=== PATIENT | male | born 1960 | race Caucasian/White ===

== ENCOUNTER 2023-09-02 17:20 | Observation (INO) | payer MEDICAID ==
[~2023-09-02] VITALS: Ht 170.2 cm; Wt 75.9 kg
[2023-09-02] MEDS ORDERED: NS 1,000 ML IV ONE (22:05)
[2023-09-02] MEDS ORDERED: IPRATROPIUM 0.5MG/ALBUTEROL 2.5MG INH SOL UD 3ML (DUONEB) NEB ONE (22:05)
[2023-09-02] MEDS ORDERED: methylPREDNISolone 125MG 2ML VIAL IV ONE (22:05)
[2023-09-02 22:31] LABS: BASO % 0.4 % (0.0-1.0); EOS # 0.2 10^3/uL (0.0-0.5); EOS % 1.5 % (0.0-3.0); HEMATOCRIT 38.3 % (42.0-52.0); HEMOGLOBIN 12.2 g/dl (13.5-17.5); LYMPH # 1.9 10^3/uL (1.5-5.0); LYMPH % 16.9 % (24.0-44.0); MEAN CORPUSCULAR HEMOGLOBIN 28.2 pg (27.0-33.0); MEAN CORPUSCULAR HGB CONC 31.9 g/dl (32.0-36.5); MEAN CORPUSCULAR VOLUME 88.7 fl (80.0-96.0); MONO # 1.1 10^3/uL (0.0-0.8); MONO % 9.9 % (2.0-8.0); NEUTROPHILS % 70.9 % (36.0-66.0); PLATELET COUNT, AUTOMATED 335 10^3/uL (150-450); RED BLOOD COUNT 4.32 10^6/uL (4.30-6.10); WHITE BLOOD COUNT 11.3 10^3/uL (4.0-10.0)
[2023-09-02 22:55] LABS: ALBUMIN 3.4 G/DL (3.2-5.2); ALKALINE PHOSPHATASE 107 U/L (46-116); ALT/SGPT 25 U/L (7.0-40); AST/SGOT 15 U/L (<34); BILIRUBIN,DIRECT 0.1 MG/DL (<0.4); BILIRUBIN,TOTAL 0.4 MG/DL (0.3-1.2); BLOOD UREA NITROGEN 27 MG/DL (9-23); CALCIUM LEVEL 9.1 MG/DL (8.3-10.6); CARBON DIOXIDE LEVEL > 40.0 MMOL/L (20-31); CHLORIDE LEVEL 95 MMOL/L (98-107); CREATININE FOR GFR 1.07 MG/DL (0.70-1.30); GLOMERULAR FILTRATION RATE > 60.0 (>49); GLUCOSE, FASTING 89 MG/DL (74-106); POTASSIUM SERUM 3.8 MMOL/L (3.5-5.1); SODIUM LEVEL 140 MMOL/L (136-145); TOTAL PROTEIN 7.6 G/DL (5.7-8.2)
[2023-09-02] MEDS ORDERED: AZITHROMYCIN INJ 500 MG, VIAL MATE ADAPTER 1 EACH in NS 250 ML IV ONE (23:15)
[2023-09-03 00:26] LABS: ABG BASE EXCESS 10.4 (-2.0-2.0); ABG HCO3 35.4 MMOL/L (22.0-26.0); ABG O2 SATURATION 93.8 % (95.0-99.0); ABG PARTIAL PRESSURE CO2 49.1 mmHg (35.0-45.0); ABG PARTIAL PRESSURE O2 67.6 mmHg (75.0-100.0); ABG STANDARD HCO3 34.1 MMOL/L. (22.0-26.0); ABG TOTAL CO2 36.9 MMOL/L (23.0-31.0); ABG pH (ARTERIAL) 7.476 UNITS (7.350-7.450)
[2023-09-03 01:22] VITALS: O2SAT 88
[2023-09-03] MEDS ORDERED: ALBUTEROL SULFATE 2.5MG/0.5ML INH NEB SOLN NEB PRN (03:40)
[2023-09-03] MEDS ORDERED: HEPARIN SOD (PORCINE) 5000UNITS/ML 1ML VIAL/SYRINGE SC SCH (03:40)
[2023-09-03] MEDS: NS 1,000 ML IV SCH ×2 (04:14→14:14)
[2023-09-03] MEDS ORDERED: ATOR1TAB21 PO (04:48)
[2023-09-03] MEDS ORDERED: GABA-1171 PO (04:48)
[2023-09-03] MEDS ORDERED: DALI1TAB2 PO (04:48)
[2023-09-03] MEDS ORDERED: VALP1CAP2 PO ×2 (04:48)
[2023-09-03] MEDS ORDERED: POTA-150 PO (04:48)
[2023-09-03] MEDS ORDERED: SYMB16INH INH (04:48)
[2023-09-03] MEDS ORDERED: DIGO0.253 PO (04:48)
[2023-09-03] MEDS ORDERED: QUET50TA4 PO (04:48)
[2023-09-03] MEDS ORDERED: FAMO1TAB11 PO (04:48)
[2023-09-03] MEDS ORDERED: NYST1POW9 TOP (04:48)
[2023-09-03] MEDS ORDERED: BISO5TAB14 PO (04:48)
[2023-09-03] MEDS ORDERED: TORS100T PO (04:48)
[2023-09-03] MEDS ORDERED: BUPR150T12 PO (04:48)
[2023-09-03] MEDS ORDERED: DOCU100C16 PO (04:48)
[2023-09-03] MEDS ORDERED: ELIQ5TAB PO (04:48)
[2023-09-03] MEDS ORDERED: ACET-907 PO (04:48)
[2023-09-03] MEDS ORDERED: AZIT500T5 PO (04:48)
[2023-09-03] MEDS ORDERED: HOME MED LIST COMPLETE! XX SCH (04:50)
[2023-09-03] MEDS: cefTRIAXone SOD 1 GM in D5W MINI-BAG PLUS 50 ML IV SCH (06:38)
[2023-09-03] MEDS: IPRATROPIUM 0.5MG/ALBUTEROL 2.5MG INH SOL UD 3ML (DUONEB) NEB SCH ×2 (08:00→14:00)
[2023-09-03 08:02] LABS: BLOOD UREA NITROGEN 26 MG/DL (9-23); CALCIUM LEVEL 8.6 MG/DL (8.3-10.6); CARBON DIOXIDE LEVEL 35 MMOL/L (20-31); CHLORIDE LEVEL 97 MMOL/L (98-107); CREATININE FOR GFR 0.89 MG/DL (0.70-1.30); GLOMERULAR FILTRATION RATE > 60.0 (>49); GLUCOSE, FASTING 204 MG/DL (74-106); POTASSIUM SERUM 3.9 MMOL/L (3.5-5.1); SODIUM LEVEL 139 MMOL/L (136-145)
[2023-09-03 08:12] LABS: PROCALCITONIN <0.04 ng/ml
[2023-09-03 13:17] VITALS: BP 139/65; TEMP 98.8; O2SAT 94
[2023-09-03] MEDS ORDERED: ACETAMINOPHEN 325 MG TAB PO PRN (17:25)
[2023-09-03] MEDS ORDERED: AZITHROMYCIN 250MG TABLET PO SCH (18:00)
[2023-09-03] MEDS: SYMBICORT 160/4.5MCG INHALER 6GM INH SCH (19:44)
[2023-09-03] MEDS: GABAPENTIN 100 MG CAP PO SCH (20:02)
[2023-09-03] MEDS: bisoproloL fumarate 5 MG TAB PO SCH (20:02)
[2023-09-03] MEDS: APIXABAN 5 MG TAB (ELIQUIS) PO SCH (20:02)
[2023-09-03 20:25] VITALS: BP 140/65; TEMP 98.6; O2SAT 96
[2023-09-03] MEDS ORDERED: DOCUSATE SODIUM 100MG CAPSULE PO SCH (21:00)
[2023-09-03] MEDS ORDERED: VALPROIC ACID 250MG CAP PO SCH (21:00)
[2023-09-03] MEDS ORDERED: ATORVASTATIN 20 MG TAB PO SCH (21:00)
[2023-09-03] MEDS ORDERED: QUEtiapine FUMARATE 50MG TAB PO SCH (21:00)
[2023-09-04] MEDS: NS 1,000 ML IV SCH ×2 (00:32→11:32)
[2023-09-04 05:30] VITALS: BP 108/56; TEMP 97.1; O2SAT 95
[2023-09-04] MEDS: cefTRIAXone SOD 1 GM in D5W MINI-BAG PLUS 50 ML IV SCH (05:30)
[2023-09-04 06:43] LABS: BLOOD UREA NITROGEN 23 MG/DL (9-23); CALCIUM LEVEL 7.9 MG/DL (8.3-10.6); CARBON DIOXIDE LEVEL 31 MMOL/L (20-31); CHLORIDE LEVEL 104 MMOL/L (98-107); CREATININE FOR GFR 0.83 MG/DL (0.70-1.30); GLOMERULAR FILTRATION RATE > 60.0 (>49); GLUCOSE, FASTING 97 MG/DL (74-106); POTASSIUM SERUM 3.3 MMOL/L (3.5-5.1); SODIUM LEVEL 142 MMOL/L (136-145)
[2023-09-04] MEDS ORDERED: SODIUM CHLORIDE HYPERTONIC 3% 4ML NEB SOL INH SCH (08:00)
[2023-09-04] MEDS ORDERED: TIOTROPIUM INHALER/CAPSULE (SPIRIVA) INH SCH (08:00)
[2023-09-04] MEDS ORDERED: IPRATROPIUM 0.5MG/ALBUTEROL 2.5MG INH SOL UD 3ML (DUONEB) NEB SCH (08:00)
[2023-09-04 08:16] VITALS: BP 121/58
[2023-09-04] MEDS: GABAPENTIN 100 MG CAP PO SCH (08:16)
[2023-09-04] MEDS: bisoproloL fumarate 5 MG TAB PO SCH (08:16)
[2023-09-04] MEDS: APIXABAN 5 MG TAB (ELIQUIS) PO SCH (08:16)
[2023-09-04] MEDS: SYMBICORT 160/4.5MCG INHALER 6GM INH SCH (08:20)
[2023-09-04] MEDS ORDERED: DIGOXIN 0.25 MG TAB PO SCH (09:00)
[2023-09-04] MEDS ORDERED: POTASSIUM CHLORIDE 10MEQ SR TABLET PO SCH (09:00)
[2023-09-04] MEDS ORDERED: VALPROIC ACID 250MG CAP PO SCH (09:00)
[2023-09-04] MEDS ORDERED: FAMOTIDINE 20 MG TAB PO SCH (09:00)
[2023-09-04] MEDS ORDERED: buPROPion **XL** TABLET 150MG (WELLBUTRIN XL) PO SCH (09:00)
[2023-09-04] MEDS ORDERED: predniSONE 20 MG TAB PO SCH (09:00)
[2023-09-04] MEDS ORDERED: POTASSIUM CHLORIDE 10MEQ SR TABLET PO ONE (12:00)
[2023-09-06 17:08] LABS: BODY FLUID CULTURE Not indicated. (.); LEGIONELLA ANTIGEN URINE Negative (Negative); ORGANISM ID Not indicated. (.); SPECIMEN SOURCE Urine (.); URINE STREP PNEUMONIAE ANTIGEN Negative (Negative)
== END 2023-09-04 14:07 ==
LOC: M ED 17:20 → M ED INP 17:21 → M MSPAV 09-03 13:05
PROVIDERS: ADMIT Internal Medicine; ATTEND Internal Medicine
DX: J18.9 Pneumonia, unspecified organism (principal); J96.11 Chronic respiratory failure with hypoxia; J44.1 Chronic obstructive pulmonary disease with (acute) exacerbation; Z99.81 Dependence on supplemental oxygen; E87.3 Alkalosis; I48.91 Unspecified atrial fibrillation; Z79.01 Long term (current) use of anticoagulants; K21.9 Gastro-esophageal reflux disease without esophagitis; F31.9 Bipolar disorder, unspecified; F25.9 Schizoaffective disorder, unspecified; G89.4 Chronic pain syndrome; Z79.899 Other long term (current) drug therapy; Z88.1 Allergy status to other antibiotic agents; Z88.0 Allergy status to penicillin; Z88.8 Allergy status to other drugs, medicaments and biological substances; Z87.891 Personal history of nicotine dependence
CPT/HCPCS: 36415; 36600; 71046; 71250; 80048; 80076; 82803; 83605; 83880; 84145; 85025; 86140; 87040; 87070; 87205; 87449; 87486; 87581; 87633; 87641; 87798; 87899; 94640; 96361; 96365; 96366; 96367; 96375; 99285; J0456; J0696; J2930; J7512

== ENCOUNTER 2023-09-25 04:50 | Emergency (ER) | payer MEDICAID ==
[~2023-09-25 04:50] MED LIST: ACET-907 PO; ATOR1TAB21 PO; AZIT500T5 PO; BISO5TAB14 PO; BUPR150T12 PO; DALI1TAB2 PO; DIGO0.253 PO; DOCU100C16 PO; ELIQ5TAB PO; FAMO1TAB11 PO; GABA-1171 PO; NYST1POW9 TOP; POTA-150 PO; QUET50TA4 PO; SYMB16INH INH; TORS100T PO; VALP1CAP2 PO
[2023-09-25 06:53] LABS: HEMOGLOBIN 10.5 g/dl (13.5-17.5); MEAN CORPUSCULAR HEMOGLOBIN 27.1 pg (27.0-33.0); MEAN CORPUSCULAR HGB CONC 30.9 g/dl (32.0-36.5); MEAN CORPUSCULAR VOLUME 87.9 fl (80.0-96.0); PLATELET COUNT, AUTOMATED 207 10^3/uL (150-450); RED BLOOD COUNT 3.87 10^6/uL (4.30-6.10)
[2023-09-25 07:01] VITALS: BP 146/78; TEMP 97.1; O2SAT 99
[2023-09-25 07:13] LABS: ETHYL ALCOHOL (ETHANOL) < 0.003 % (0.000-0.010)
[2023-09-25 07:14] LABS: SALICYLATE LEVEL < 3.0 MG/DL (<30)
[2023-09-25 07:15] LABS: ALKALINE PHOSPHATASE 74 U/L (46-116); ALT/SGPT 12 U/L (7.0-40); AST/SGOT 10 U/L (<34); BILIRUBIN,DIRECT 0.1 MG/DL (<0.4); BILIRUBIN,TOTAL 0.3 MG/DL (0.3-1.2); BLOOD UREA NITROGEN 20 MG/DL (9-23); CALCIUM LEVEL 8.3 MG/DL (8.3-10.6); CARBON DIOXIDE LEVEL 29 MMOL/L (20-31); CHLORIDE LEVEL 102 MMOL/L (98-107); CPK CREATINE PHOSPHOKINASE 56 U/L (46-171); CREATININE FOR GFR 0.82 MG/DL (0.70-1.30); GLOMERULAR FILTRATION RATE > 60.0 (>49); GLUCOSE, FASTING 95 MG/DL (74-106); SODIUM LEVEL 138 MMOL/L (136-145); TOTAL PROTEIN 6.5 G/DL (5.7-8.2)
[2023-09-25] MEDS ORDERED: HOME MED LIST COMPLETE! XX SCH (09:00)
[2023-09-25] MEDS ORDERED: IPRA0.00 INH (09:00)
[2023-09-25] MEDS ORDERED: TORS20TA2 PO (09:00)
[2023-09-25 09:52] LABS: AMPHETAMINES LEVEL URINE NEGATIVE (NEGATIVE); BARBITURATES URINE NEGATIVE (NEGATIVE); BENZODIAZEPINES URINE NEGATIVE (NEGATIVE); COCAINE METABOLITE URINE NEGATIVE (NEGATIVE)
[2023-09-25 09:53] LABS: CANNABINOIDS URINE NEGATIVE (NEGATIVE); METHADONE URINE NEGATIVE (NEGATIVE); OPIATES URINE NEGATIVE (NEGATIVE); PHENCYCLIDINE URINE NEGATIVE (NEGATIVE)
== END 2023-09-25 18:40 | disposition home or self-care (01) ==
LOC: M ED 04:50
DX: F43.0 Acute stress reaction (principal); R45.850 Homicidal ideations; I10 Essential (primary) hypertension; E78.5 Hyperlipidemia, unspecified; F31.9 Bipolar disorder, unspecified; F20.9 Schizophrenia, unspecified; J44.9 Chronic obstructive pulmonary disease, unspecified; G47.33 Obstructive sleep apnea (adult) (pediatric); Z86.79 Personal history of other diseases of the circulatory system; Z79.01 Long term (current) use of anticoagulants; Z88.1 Allergy status to other antibiotic agents; Z79.52 Long term (current) use of systemic steroids; Z79.891 Long term (current) use of opiate analgesic; Z79.899 Other long term (current) drug therapy